=== PATIENT | female | born 1985 | race Caucasian/White ===

== ENCOUNTER 2020-12-16 15:43 | Emergency (ER) | payer OTHER, SELFPAY ==
--- NOTE | ~2020-12-16 | XR_ITS ---
EXAMINATION: XR chest 2V DATE: 12/16/2020 17:05 INDICATION: Shortness of breath TECHNIQUE: PA and lateral views of the chest are obtained. COMPARISON: None available FINDINGS: The lungs are free of acute opacities. There is no pleural effusion or pneumothorax. The ca rdiomediastinal silhouette is normal. The visualized bones and soft tissues are unremarkable. IMPRESSION: 1. No acute cardiopulmonary abnormality. Reviewed, dictated and finalized at location A. STMENT BROKER
[2020-12-16 15:45] VITALS: BP 133/90; PULSE 107; RESP 16; TEMP 36.6; O2SAT 100
--- NOTE | 2020-12-16 15:50 | ECG_ITS ---
Measurements Intervals [place] Rate: 94 P: 52 [place]: 142 QRS: 5 QRSD: 105 T: 3 QT: 353 QTc: 443 Interpretive Statements SINUS RHYTHM POSSIBLE LEFT ATRIAL ENLARGEMENT INCOMPLETE RIGHT BUNDLE BRANCH BLOCK DELAYED PRECORDIAL R/S TRANSITION BORDERLINE T WAVE ABNORMALITY- INFERIOR LEADS BASELINE WANDER- V3 BORDERLINE ECG Electronically Signed On 12-16-2020 16:01:39 BULB TESTER by Kyle Hayes D.O.
[2020-12-16 16:07] LABS: Basophils Absolute Auto 0.1 K/mm3 (0.0-0.1); Basophils Percent Auto 0.6 % (0.2-1.2); Eosinophils Absolute Auto 0.2 K/mm3 (0-0.3); Eosinophils Percent Auto 1.9 % (0-4.4); Hematocrit 39.3 % (37.0-47.0); Hemoglobin 13.3 g/dL (12.0-15.0); Immature Granulocyte Absolute 0.02 K/mm3 (0.00-0.031); Immature Granulocyte Percent A 0.3 % (0-0.5); Lymphocytes Absolute Auto 3.37 K/mm3 (0.9-3.2); Lymphocytes Percent Auto 43.3 % (18.3-44.2); Mean Corpuscular HGB Conc 33.8 g/dl (32-36); Mean Corpuscular Hemoglobin 29.7 pg (26-34); Mean Corpuscular Volume 87.7 fl (80-100); Mean Platelet Volume 9.3 fl (7.4-10.4); Monocytes Absolute Auto 0.8 K/mm3 (0.1-0.6); Monocytes Percent Auto 10.1 % (2.6-8.5); Neutrophils Absolute Auto 3.4 K/mm3 (1.3-6.7); Neutrophils Percent Auto 43.8 % (45.5-73.1); Platelet Count Result 451 k/mm3 (150-375); Red Blood Count 4.48 M/mm3 (4.2-5.4); White Blood Count 7.8 K/mm3 (4.5-10.0)
[2020-12-16 16:18] LABS: Anion Gap 7 mmol/L (8-16); Blood Urea Nitrogen 18 mg/dL (7-17); Calcium 9.9 mg/dL (8.4-10.2); Carbon Dioxide 26 mmol/L (22-30); Chloride 104 mmol/L (98-107); Estimated CRCL calculation 97 ml/min; Estimated Glomerular Filt Rate > 60; Glucose 89 mg/dL (65-105); Potassium 3.5 mmol/L (3.4-5.0); Sodium 137 mmol/L (137-145)
--- NOTE | 2020-12-16 17:59 | ED.SOB ---
HPI - SOB/Dyspnea General Chief Complaint: Shortness of Breath/Dyspnea Stated Complaint: waking up with panic attack Time Seen by Provider: 12/16/20 17:46 Source: patient Mode of arrival: ambulatory Limitations: no limitations History of Present Illness HPI Narrative: This is a 35-year-old female that presents the emergency department for intermittent chest pain x3 months. Reports after being diagnosed with coronavirus she has had trouble with chest pain since. Reports the pain is substernal and feels tight in nature. Reports it is worse when she lays down. Also reports exertional dyspnea. Reports a mild intermittent cough. Denies fever or lower extremity edema. Related Data Home Medications Medication Instructions Recorded Confirmed hydrochlorothiazide 12/16/20 12/16/20 Allergies Allergy/AdvReac Type Severity Reaction Status Date / Time No Known Allergies Allergy Verified 12/16/20 17:07 Review of Systems Review of Systems: Narrative: CONSTITUTIONAL: Denies fever CARDIOVASCULAR: Reports chest pain. Denies edema. RESPIRATORY: Reports cough and dyspnea. All systems reviewed & are unremarkable except as noted in HPI and below PMFSH Past Medical History Medical History (Updated 12/16/20 @ 19:10 by Miranda Nunez PA-C) History of kidney stones Surgical History Surgical History (Updated 12/16/20 @ 18:01 by Miranda Nunez PA-C) History of section History of lithotripsy Social History Social History Gender identity (if verbalized by the patient): Female Exam Narrative: Exam Narrative: GENERAL: Well-appearing, well-nourished, and in no acute distress. HEAD: Normocephalic, atraumatic. EYES: EOMI. CHEST: Clear to auscultation. No respiratory distress. No wheezes rales or rhonchi HEART: Regular rate and rhythm. No murmur heard. Normal peripheral pulses. EXTREMITIES: Normal range of motion. No edema. SKIN: Warm, dry, no rash. NEURO: No focal deficits. Alert and oriented x3. PSYCH: Normal mood and affect Course Vital Signs Vital signs: Vital Signs Temperature 97.8 F 12/16/20 15:45 Pulse Rate 107 H 12/16/20 15:45 Respiratory Rate 16 12/16/20 15:45 Blood Pressure 133/90 12/16/20 15:45 Pulse Oximetry 100 12/16/20 15:45 Temperature 97.8 F 12/16/20 15:45 Pulse Rate 107 H 12/16/20 15:45 Respiratory Rate 16 12/16/20 15:45 Blood Pressure 133/90 12/16/20 15:45 Pulse Oximetry 100 12/16/20 15:45 MDM - SOB/Dyspnea MDM Narrative Medical decision making narrative: Patient presents to the emergency department for intermittent chest pain and shortness of breath noted since her Covid diagnosis 3 months ago. She is afebrile and nontoxic-appearing. Mildly tachycardic upon arrival, this normalized without intervention. CBC is without leukocytosis. Metabolic panel without concerning findings. EKG is without concerning changes and baseline troponin is negative. D-dimer is also negative. Chest x-ray without acute cardiopulmonary abnormality. Patient was updated on case findings. She is stable and felt appropriate for the outpatient evaluation. She is to follow-up with her primary care doctor. She was given warnings to return to the ER Lab Data Attestation: I reviewed the patient's lab results. Result diagrams: 12/16/20 15:54 12/16/20 15:54 Labs: Lab Results 12/16/20 12/16/20 12/16/20 Range/Units 15:54 15:54 15:54 WBC 7.8 (4.5-10.0) K/mm3 RBC 4.48 (4.2-5.4) M/mm3 Hgb 13.3 (12.0-15.0) g/dL Hct 39.3 (37.0-47.0) % MCV 87.7 (80-100) fl MCH 29.7 (26-34) pg MCHC 33.8 (32-36) g/dl RDW 12.0 (11.5-14.5) % Plt Count 451 H (150-375) k/mm3 MPV 9.3 (7.4-10.4) fl Immature Gran % (Auto) 0.3 (0-0.5) % Neut % (Auto) 43.8 L (45.5-73.1) % Lymph % (Auto) 43.3 (18.3-44.2) % [place] % (Auto) 10.1 H (2.6-8.5) % Eos % (Auto) 1.9 (0-4.4) % Baso % (Auto) 0.6 (0.2-1.2)
[2020-12-16 18:04] LABS: Prothrombin Time 13.8 Seconds (11.1-14.7)
[2020-12-16 18:05] LABS: Partial Thromboplastin Time 37.1 SECONDS (22.3-36.8)
[2020-12-16 18:12] LABS: Troponin I < 0.012 ng/mL (0.000-0.034)
[2020-12-16 18:13] LABS: D Dimer < 0.22 ug/mL (<0.48)
[2020-12-16 19:18] VITALS: BP 140/96; PULSE 88; RESP 16; O2SAT 98
[2020-12-16 19:20] VITALS: BP 132/101; PULSE 86; RESP 17; O2SAT 99
[2020-12-16 19:32] VITALS: BP 140/96; PULSE 84; RESP 18; O2SAT 99
== END 2020-12-16 19:32 | disposition home or self-care (01) ==
PROVIDERS: Physician Assistant; Emergency Provider Emergency Medicine; PCP Family Medicine Sports Medicine
DX: R07.89 Other chest pain (principal); Z86.16 Personal history of COVID-19; Z87.442 Personal history of urinary calculi; R94.31 Abnormal electrocardiogram [ECG] [EKG]
CPT/HCPCS: 36415; 71046; 80048; 84484; 85025; 85380; 85610; 85730; 93005; 99284

== ENCOUNTER 2020-12-28 07:22 | Emergency (ER) | payer OTHER, SELFPAY ==
[2020-12-28] VITALS (30 sets, daily range): BP systolic 109–155; BP diastolic 68–95; PULSE 77–105; RESP 12–29; TEMP 36.7; O2SAT 92–100
--- NOTE | ~2020-12-28 | CT_ITS ---
EXAMINATION: CTA chest EXAM DATE: 12/28/2020 10:02 INDICATION: Chest pressure, back pain. TECHNIQUE: Spiral CT of the chest following intravenous injection of 100 mL Omnipaque 350. Axial, co gildardo and sagittal images were reviewed. Coronal maximum intensity pixel images of chest reviewed. The dose-length product (DLP) for this examination was 351.68 mGy-cm. The exposure was tailored acco rding to patient size (auto mA exposure control), and iterative reconstruction (ASIR) was used as add itional dose reduction technique. There is no prior study for comparison. FINDINGS: No aortic aneurysm or central pulmonary emboli. The lungs are clear. There are no pleural or pericardial effusions. Tracheobronchial tree is patent. There is no mediastinal, hilar or axi llary lymphadenopathy. There is no pneumothorax. Heart normal in size. No evidence of coronary arterial calcification. There is small sliding gastroesophageal hiatal hernia. Upper abdomen is unre markable. The bones are unremarkable. IMPRESSION: 1. No acute cardiopulmonary findings. 2. Small hiatal hernia. Reviewed, dictated and finalized at location B. UETTE OPERATOR
--- NOTE | 2020-12-28 07:29 | ECG_ITS ---
Measurements Intervals [place] Rate: 99 P: 60 [place]: 136 QRS: 9 QRSD: 106 T: -14 QT: 295 QTc: 378 Interpretive Statements SINUS RHYTHM POSSIBLE LEFT ATRIAL ENLARGEMENT INCOMPLETE RIGHT BUNDLE BRANCH BLOCK BORDERLINE T WAVE ABNORMALITY- INFERIOR LEADS BASELINE ARTIFACT- I BORDERLINE ECG Electronically Signed On 12-28-2020 8:20:57 RESOLUTION EXPERT by Kyle Hayes D.O.
--- NOTE | 2020-12-28 07:50 | ED.CHESTPAIN ---
HPI - Chest Pain General Chief Complaint: Chest Pain Stated Complaint: CP X WEEKS Time Seen by Provider: 12/28/20 07:26 Source: patient Mode of arrival: ambulatory Limitations: no limitations History of Present Illness HPI narrative: PAtient is a 35 year old female who presents for evaluation of intermittent chest pain for month. She was diagnosed with COVID in august , and she started having chest pain at that time. She states her pain resolved until 2 weeks ago. She was evaluated in ER over 1 week ago. She reports intermittent episodes of feeling that she is having a panic attack. This morning at 3 am she woke with heart racing, sweating, panicking and with chest pressure. She report she thinks she is going to . She was started on Metoprolol last for an elevated HR. She has not been referred to a cutter plastics rolls yet for evaluation. Related Data Home Medications Medication Instructions Recorded Confirmed hydrochlorothiazide 12/16/20 12/16/20 metoprolol succinate PO 12/28/20 Allergies Allergy/AdvReac Type Severity Reaction Status Date / Time No Known Allergies Allergy Verified 12/16/20 17:07 Review of Systems Review of Systems: All systems reviewed & are unremarkable except as noted in HPI and below Constitutional: Constitutional: Denies chills and Denies fever(s) Cardiovascular: Cardiovascular: Reports chest pain and Reports rapid heart rate Gastrointestinal: Gastrointestinal: Denies abdominal pain, Denies diarrhea, Reports nausea and Denies vomiting Psychiatric: Psychiatric: Reports anxiety PMFSH Past Medical History Medical History (Updated 12/28/20 @ 11:55 by Faye Latif MD) History of kidney stones Surgical History Surgical History (Updated 12/16/20 @ 18:01 by Miranda Nunez PA-C) History of section History of lithotripsy Social History Social History Gender identity (if verbalized by the patient): Female Exam Const: General: no acute distress and alert Orientation/consciousness: patient oriented x3 Eyes: EOM: EOMs intact bilaterally Chest: Chest palpation & inspection: tenderness Resp: Effort & Inspection: normal respiratory effort and no retractions Auscultation: clear to auscultation bilaterally Cardio: Rate: regular rate Rhythm: regular rhythm Heart sounds: no murmurs GI: GI Palp: Yes Soft to palpation, No Tenderness to palpation present (GI) and No Guarding due to palpation present (GI) Auscultation: normal bowel sounds Skin: General skin exam: normal color Rashes: no rashes Neuro: General: patient oriented x3, moves all extremities and CN's II-XI intact bilaterally Extrem: General: normal to inspection and no pedal edema Psych: Other: starting crying Course Reevaluation(s) Reevaluation #1: I have discussed with patient labs and imaging unremarkable. I have discussed case with cutter plastics rolls and he agrees patient can be evaluation on outpatient basis. Date: 12/28/20 Time: 11:52 Consultations Consultation #1: I Discussed case with Dr. Irwin and he reviewed patient chart. PAtient can be evaluated on outpatient basis. Date: 12/28/20 Time: 11:50 Vital Signs Vital signs: Vital Signs Temperature 98.1 F 12/28/20 07:26 Pulse Rate 103 H 12/28/20 07:26 Respiratory Rate 14 12/28/20 07:26 Blood Pressure 155/95 H 12/28/20 07:26 Pulse Oximetry 100 12/28/20 07:26 Temperature 98.1 F 12/28/20 07:26 Pulse Rate 91 12/28/20 12:11 Respiratory Rate 16 12/28/20 12:11 Blood Pressure 142/95 H 12/28/20 12:11 Pulse Oximetry 100 12/28/20 12:11 MDM - Chest Pain Lab Data Attestation: I reviewed the patient's lab results. Result diagrams: 12/28/20 07:52 12/28/20 07:52 Labs: Lab Results 12/28/20 12/28/20 12/28/20 Range/Units 07:52 07:52 07:52 WBC 9.4 (4.5-10.0) K/mm3 RBC 4.55 (4.2-5.4) M/mm3 Hgb 13.6 (12.0-15.0) g/dL Hct 40.1 (37.0-47.0) %
[2020-12-28 07:59] LABS: Basophils Percent Auto 0.4 % (0.2-1.2); Eosinophils Absolute Auto 0.2 K/mm3 (0-0.3); Eosinophils Percent Auto 1.9 % (0-4.4); Hematocrit 40.1 % (37.0-47.0); Hemoglobin 13.6 g/dL (12.0-15.0); Immature Granulocyte Absolute 0.02 K/mm3 (0.00-0.031); Immature Granulocyte Percent A 0.2 % (0-0.5); Lymphocytes Absolute Auto 3.62 K/mm3 (0.9-3.2); Lymphocytes Percent Auto 38.6 % (18.3-44.2); Mean Corpuscular HGB Conc 33.9 g/dl (32-36); Mean Corpuscular Hemoglobin 29.9 pg (26-34); Mean Corpuscular Volume 88.1 fl (80-100); Mean Platelet Volume 9.5 fl (7.4-10.4); Monocytes Absolute Auto 0.9 K/mm3 (0.1-0.6); Monocytes Percent Auto 9.3 % (2.6-8.5); Neutrophils Absolute Auto 4.6 K/mm3 (1.3-6.7); Neutrophils Percent Auto 49.6 % (45.5-73.1); Platelet Count Result 400 k/mm3 (150-375); Red Blood Count 4.55 M/mm3 (4.2-5.4); Red Cell Distribution Width 12.6 % (11.5-14.5); White Blood Count 9.4 K/mm3 (4.5-10.0)
[2020-12-28] MEDS: SODIUM CHLORIDE 0.9% IV 1,000 ML 999 ML IV CONT (07:59)
[2020-12-28] MEDS: hydrOXYzine HCL 25 MG TABLET 50 MG PO (07:59)
[2020-12-28 08:09] LABS: Prothrombin Time 13.5 Seconds (11.1-14.7)
[2020-12-28 08:11] LABS: Alanine Aminotransferase 25 U/L (4-35); Albumin Level 4.5 g/dL (3.5-5.1); Alkaline Phosphatase 73 U/L (38-126); Anion Gap 9 mmol/L (8-16); Aspartate Amino Transferase 26 U/L (14-36); Bilirubin,Total 0.5 mg/dL (0.2-1.3); Blood Urea Nitrogen 20 mg/dL (7-17); Calcium 9.6 mg/dL (8.4-10.2); Carbon Dioxide 25 mmol/L (22-30); Chloride 103 mmol/L (98-107); Estimated CRCL calculation 99 ml/min; Estimated Glomerular Filt Rate > 60; Glucose 114 mg/dL (65-105); Lipase 105 U/L (23-300); Partial Thromboplastin Time 36.1 SECONDS (22.3-36.8); Potassium 3.4 mmol/L (3.4-5.0); Sodium 137 mmol/L (137-145)
[2020-12-28 08:18] LABS: D Dimer 0.26 ug/mL (<0.48)
[2020-12-28 08:22] LABS: Troponin I < 0.012 ng/mL (0.000-0.034)
--- NOTE | 2020-12-28 10:55 | PC.NURSE ---
refinery operator helper at bedside obtaining labs. Pt. in no acute distress. Breathing and skin signs wnl.
[2020-12-28 11:23] LABS: Troponin I < 0.012 ng/mL (0.000-0.034)
[2020-12-28] MEDS: BELLADONNA ALK/PHENOB ELIX 10 ML, MAG HYDROX/ALUMINUM HYD/SIMETH 30 ML, LIDOCAINE HCL 2... PO (11:32)
== END 2020-12-28 12:34 | disposition home or self-care (01) ==
PROVIDERS: Emergency Provider General Practice; PCP Family Medicine Sports Medicine
DX: R07.89 Other chest pain (principal); R00.2 Palpitations; Z87.442 Personal history of urinary calculi
CPT/HCPCS: 36415; 71275; 80048; 80076; 81025; 83690; 84484; 85025; 85380; 85610; 85730; 93005; 96360; 99284; A9270; J7030; Q9967

== ENCOUNTER 2021-01-09 14:26 | Emergency (ER) | payer OTHER, SELFPAY ==
--- NOTE | ~2021-01-09 | XR_ITS ---
EXAMINATION: XR chest 2V EXAM DATE: 01/09/2021 14:51 INDICATION: Mid chest pain, racing heart. TECHNIQUE: Frontal and lateral projections of the chest obtained and reviewed. Comparison is made to prior examination from 12/16/2020. FINDINGS: The lungs are clear. There are no pleural effusions. The cardiomediastinal silhouette is within normal limits. There is no pneumothorax suspected. The bones and soft tissues are unremarkab le. IMPRESSION: Normal chest x-ray exam. Reviewed, dictated and finalized at location G. TE CLERK IMPRESSION: Normal chest x-ray exam.
--- NOTE | 2021-01-09 14:30 | ECG_ITS ---
Measurements Intervals [place] Rate: 107 P: 60 [place]: 134 QRS: -3 QRSD: 100 T: -7 QT: 348 QTc: 466 Interpretive Statements SINUS TACHYCARDIA POSSIBLE LEFT ATRIAL ENLARGEMENT INCOMPLETE RIGHT BUNDLE BRANCH BLOCK NONSPECIFIC T-WAVE ABNORMALITY- ANT/INF LEADS BASELINE ARTIFACT- I, II, AVR, AVF, V4-V6 ABNORMAL ECG Electronically Signed On 01-09-2021 14:39:24 PROPERTY SUPERVISOR by Kyle Hayes D.O.
[2021-01-09 14:32] VITALS: BP 155/105; PULSE 105; RESP 18; TEMP 36.8; O2SAT 100
[2021-01-09 15:07] LABS: Basophils Percent Auto 0.5 % (0.2-1.2); Eosinophils Absolute Auto 0.1 K/mm3 (0-0.3); Eosinophils Percent Auto 1.6 % (0-4.4); Hematocrit 41.5 % (37.0-47.0); Hemoglobin 14.1 g/dL (12.0-15.0); Immature Granulocyte Absolute 0.02 K/mm3 (0.00-0.031); Immature Granulocyte Percent A 0.2 % (0-0.5); Lymphocytes Absolute Auto 3.47 K/mm3 (0.9-3.2); Lymphocytes Percent Auto 39.9 % (18.3-44.2); Mean Corpuscular Hemoglobin 29.7 pg (26-34); Mean Corpuscular Volume 87.6 fl (80-100); Mean Platelet Volume 9.3 fl (7.4-10.4); Monocytes Absolute Auto 0.9 K/mm3 (0.1-0.6); Monocytes Percent Auto 10.2 % (2.6-8.5); Neutrophils Absolute Auto 4.1 K/mm3 (1.3-6.7); Neutrophils Percent Auto 47.6 % (45.5-73.1); Platelet Count Result 461 k/mm3 (150-375); Red Blood Count 4.74 M/mm3 (4.2-5.4); Red Cell Distribution Width 12.4 % (11.5-14.5); White Blood Count 8.7 K/mm3 (4.5-10.0)
[2021-01-09 15:09] VITALS: PULSE 91
[2021-01-09 15:13] LABS: INR 0.9; Prothrombin Time 13.1 Seconds (11.1-14.7)
[2021-01-09 15:14] LABS: Partial Thromboplastin Time 36.3 SECONDS (22.3-36.8)
[2021-01-09 15:15] LABS: Magnesium 1.9 mg/dL (1.6-2.3)
--- NOTE | 2021-01-09 15:18 | ED.CHESTPAIN ---
HPI - Chest Pain General Chief Complaint: Chest Pain Stated Complaint: chest pain Time Seen by Provider: 01/09/21 14:33 History of Present Illness HPI narrative: Patient is a 35-year-old female who presents to the ER with chest pain. Has been having issues with this over the last couple months. Reports she has been to the ER multiple times. She has had a CT to rule out PE and has had multiple blood test. She is scheduled to have a Holter monitor put on tomorrow and then is also scheduled for a stress test. Patient is not drinking caffeine. She does not smoke cigarettes. She reports she has been feeling her heart potentially skip a beat and that is what provoked everything this morning. She then is unsure if she has panic attacks but will then monitor her heart rate and finds it is variable in its speed. Related Data Home Medications Medication Instructions Recorded Confirmed hydrochlorothiazide 12/16/20 12/16/20 metoprolol succinate PO 12/28/20 Allergies Allergy/AdvReac Type Severity Reaction Status Date / Time No Known Allergies Allergy Verified 12/16/20 17:07 Review of Systems Review of Systems: All systems reviewed & are unremarkable except as noted in HPI and below Constitutional: Constitutional: Denies chills, Denies fever(s) and Denies weakness Cardiovascular: Cardiovascular: Reports chest pain, Reports rapid heart rate and Denies radiating jaw, neck or arm pain Respiratory: Respiratory: Denies cough, Reports dyspnea and Denies wheezing Gastrointestinal: Gastrointestinal: Denies abdominal pain, Denies nausea and Denies vomiting Psychiatric: Psychiatric: Reports anxiety and Denies depression PMF Past Medical History Medical History (Updated 01/09/21 @ 16:35 by Clayton Burns MD) History of kidney stones Surgical History Surgical History (Updated 12/16/20 @ 18:01 by Miranda Nunez PA-C) History of section History of lithotripsy Social History Social History Gender identity (if verbalized by the patient): Female Exam Narrative: Exam Narrative: GENERAL: Well-appearing, well-nourished, and in no acute distress. HEAD: Normocephalic, atraumatic. CHEST: Clear to auscultation. No respiratory distress. HEART: Regular rate and rhythm. Normal peripheral pulses. ABDOMEN: Soft, nontender, nondistended. EXTREMITIES: Normal range of motion. No edema. SKIN: Warm, dry, no rash. NEURO: Alert and oriented x3. Course Course Emergency Course: Suspect patient is having symptomatic PVCs. Recommend patient keep her follow-up with cardiology and obtain her outpatient Holter monitor. Discharge home. Vital Signs Vital signs: Vital Signs Temperature 98.2 F 01/09/21 14:32 Pulse Rate 105 H 01/09/21 14:32 Respiratory Rate 18 01/09/21 14:32 Blood Pressure 155/105 H 01/09/21 14:32 Pulse Oximetry 100 01/09/21 14:32 Temperature 98.2 F 01/09/21 14:32 Pulse Rate 91 01/09/21 15:09 Respiratory Rate 18 01/09/21 14:32 Blood Pressure 155/105 H 01/09/21 14:32 Pulse Oximetry 100 01/09/21 14:32 MDM - Chest Pain Lab Data Result diagrams: 01/09/21 14:56 01/09/21 14:56 Labs: Lab Results 01/09/21 01/09/21 01/09/21 Range/Units 14:56 14:56 14:56 WBC 8.7 (4.5-10.0) K/mm3 RBC 4.74 (4.2-5.4) M/mm3 Hgb 14.1 (12.0-15.0) g/dL Hct 41.5 (37.0-47.0) % MCV 87.6 (80-100) fl MCH 29.7 (26-34) pg MCHC 34.0 (32-36) g/dl RDW 12.4 (11.5-14.5) % Plt Count 461 H (150-375) k/mm3 MPV 9.3 (7.4-10.4) fl Immature Gran % (Auto) 0.2 (0-0.5) % Neut % (Auto) 47.6 (45.5-73.1) % Lymph % (Auto) 39.9 (18.3-44.2) % [place] % (Auto) 10.2 H (2.6-8.5) % Eos % (Auto) 1.6 (0-4.4) % Baso % (Auto) 0.5 (0.2-1.2) % Lymph # (Auto) 3.47 H (0.9-3.2) K/mm3 [place] # (Auto) 0.9 H (0.1-0.6) K/mm3 Eos # (Auto) 0.1 (0-0.3) K/mm3 Baso # (Auto) 0.0 (0.0-0.1) K/mm3 Abs Immat Gra
[2021-01-09 15:49] LABS: Anion Gap 10 mmol/L (8-16); Blood Urea Nitrogen 14 mg/dL (7-17); Calcium 10.2 mg/dL (8.4-10.2); Carbon Dioxide 29 mmol/L (22-30); Chloride 100 mmol/L (98-107); Estimated CRCL calculation 86 ml/min; Estimated Glomerular Filt Rate > 60; Glucose 100 mg/dL (65-105); Potassium 3.2 mmol/L (3.4-5.0); Sodium 139 mmol/L (137-145)
[2021-01-09 16:01] LABS: Troponin I < 0.012 ng/mL (0.000-0.034)
[2021-01-09 16:55] VITALS: BP 134/85; PULSE 85; RESP 18; O2SAT 98
== END 2021-01-09 17:01 | disposition home or self-care (01) ==
PROVIDERS: Emergency Medicine; Emergency Provider Emergency Medicine; PCP Family Medicine Sports Medicine
DX: R00.2 Palpitations (principal); Z87.442 Personal history of urinary calculi; R00.0 Tachycardia, unspecified; R94.31 Abnormal electrocardiogram [ECG] [EKG]; I45.10 Unspecified right bundle-branch block
CPT/HCPCS: 36415; 71046; 80048; 83735; 84484; 85025; 85610; 85730; 93005; 99284

== ENCOUNTER 2021-01-30 09:41 | Outpatient (CLI) | payer OTHER, SELFPAY ==
--- NOTE | ~2021-01-30 | NM_ITS ---
EXAMINATION: NM hepatobiliary wo pharm DATE: 01/30/2021 12:32 INDICATION: Upper abdominal pain. COMPARISON: None. TECHNIQUE: 4.8 mCi Tc-99m mebrofenin (Choletec) was administered intravenously. Scintigraphic images of the abdomen were obtained for one hour. Then, the patient drank 8 oz Ensure, and imaging was cont inued for 60 minutes. FINDINGS: There is normal clearance of radiotracer from the blood pool. There is homogeneous tracer u ptake by the liver. Activity progresses to the bowel and gallbladder. Gallbladder ejection fraction (GBEF) was 26%. Note that with this technique, normal GBEF >= 33%. IMPRESSION: 1. Low gallbladder ejection fraction, consistent with gallbladder dysfunction and/or chronic cholecy stitis. Reviewed, dictated and finalized at location A. OROLOGY PROFESSOR IMPRESSION: 1. Low gallbladder ejection fraction, consistent with gallbladder dysfunction and/or chronic cholecystitis.
== END 2021-01-30 09:42 | disposition home or self-care (01) ==
LOC: ANHIMG 09:45
PROVIDERS: PCP Family Medicine Sports Medicine; Visit Provider Nurse Practitioner
DX: R07.89 Other chest pain (principal); R11.0 Nausea; R10.84 Generalized abdominal pain; R53.83 Other fatigue
CPT/HCPCS: 78226; A9537

== ENCOUNTER → 2021-06-01 15:10 | Outpatient (CLI) | payer OTHER, SELFPAY ==
--- NOTE | ~2021-06-01 | CT_ITS ---
EXAMINATION: CT cervical spine wo con DATE: 06/01/2021 15:35 INDICATION: Neck pain. Cervical stenosis. TECHNIQUE: Computed tomography (CT) of the cervical spine was performed without intravenous contrast. Automated exposure control and iterative reconstruction technique were employed. The dose-length pro duct was 237.53 mGy-cm. COMPARISON: None FINDINGS: There is mild kyphosis of lower cervical spine. There is 3 degrees dextrocurvature of cervi jamey spine. Vertebral body heights are normal. There is moderately decreased disc height at C5-C6 and C6-C7. The following disc levels are specifically discussed: C2-C3 through C4-C5: There is no uncovertebral joint osteoarthritis. There is no facet joint osteoart hritis. There is no neural foraminal stenosis. There is no central canal stenosis. C5-C6: There is mild bilateral uncovertebral joint osteoarthritis. There is no facet joint osteoarthr itis. There is mild right neural foraminal stenosis. There is moderate central canal stenosis. C6-C7: There is mild bilateral uncovertebral joint osteoarthritis. There is no facet joint osteoarthr itis. There is no neural foraminal stenosis. There is moderate central canal stenosis. C7-T1: There is no uncovertebral joint osteoarthritis. There is mild bilateral facet joint osteoarthr itis. There is no neural foraminal stenosis. There is no central canal stenosis. IMPRESSION: 1. Moderate cervical spondylosis. Reviewed, dictated and finalized at location A.
== END ==
DX: M48.02 Spinal stenosis, cervical region (principal); M47.892 Other spondylosis, cervical region
CPT/HCPCS: 72125

== ENCOUNTER → 2021-06-01 15:17 | Outpatient (CLI) | payer OTHER, SELFPAY ==
--- NOTE | ~2021-06-01 | CT_ITS ---
EXAMINATION: CT diagnostic chest wo con DATE: 06/01/2021 15:35 INDICATION: Thoracic cysts. TECHNIQUE: Computed tomography (CT) of the chest was performed without intravenous contrast. The dose -length product was 190.92 mGy-cm. Automated exposure control and iterative reconstruction technique were employed. COMPARISON: CT dated 12/28/2020 FINDINGS: No thoracic lymphadenopathy. No significant pleural or pericardial effusion. No significant vascular abnormality. Upper abdomen is unremarkable. There are cholecystectomy clips. No soft tissue abnormality is seen. There is dependent atelectasis. No suspicious pulmonary nodules or masses. Smal l hiatal hernia. IMPRESSION: 1. No acute cardiopulmonary disease. Reviewed, dictated and finalized at location A.
== END ==
DX: Q34.9 Congenital malformation of respiratory system, unspecified (principal)
CPT/HCPCS: 71250

== ENCOUNTER → 2021-07-07 13:14 | Outpatient (CLI) | payer OTHER, SELFPAY ==
--- NOTE | ~2021-07-07 | XR_ITS ---
XR ankle LT 2V DATE: 07/07/2021 14:11 INDICATION: Left ankle pain TECHNIQUE: AP and lateral views COMPARISON: None FINDINGS: No fracture or dislocation of the ankle or disruption of the ankle mortise. No periosteal r eaction or bone destruction. There is mild posterior calcaneal enthesopathy. IMPRESSION: Mild posterior calcaneal enthesopathy Reviewed, dictated and finalized at location A.
--- NOTE | ~2021-07-07 | XR_ITS ---
XR foot RT 2V DATE: 07/07/2021 14:11 INDICATION: Right foot pain TECHNIQUE: AP and lateral views COMPARISON: None FINDINGS: Mild posterior calcaneal enthesopathy. No fracture or dislocation, periosteal reaction or b one destruction. IMPRESSION: Mild posterior calcaneal enthesopathy Reviewed, dictated and finalized at location A.
--- NOTE | ~2021-07-07 | XR_ITS ---
XR ankle RT 2V DATE: 07/07/2021 14:11 INDICATION: Right ankle pain TECHNIQUE: AP and lateral views COMPARISON: None FINDINGS: No fracture or dislocation of the ankle or disruption of the ankle mortise. No periosteal r eaction or bone destruction. Mild posterior calcaneal enthesopathy. IMPRESSION: Mild posterior calcaneal enthesopathy Reviewed, dictated and finalized at location A.
--- NOTE | ~2021-07-07 | XR_ITS ---
XR foot LT 2V DATE: 07/07/2021 14:11 INDICATION: Left foot pain TECHNIQUE: AP and lateral views COMPARISON: None FINDINGS: Mild posterior calcaneal enthesopathy. No fracture or dislocation, periosteal reaction or b one destruction. IMPRESSION: Mild posterior calcaneal enthesopathy Reviewed, dictated and finalized at location A.
== END ==
PROVIDERS: Visit Provider Internal Medicine Rheumatology
DX: R53.81 Other malaise (principal); M25.50 Pain in unspecified joint; M79.10 Myalgia, unspecified site; M77.31 Calcaneal spur, right foot; M77.32 Calcaneal spur, left foot
CPT/HCPCS: 73600; 73620

== ENCOUNTER 2021-12-23 23:03 | Emergency (ER) | payer OTHER, SELFPAY ==
--- NOTE | ~2021-12-23 | CT_ITS ---
EXAMINATION: CT abdomen pelvis wo con DATE: 12/24/2021 04:32 INDICATION: Left flank pain. Nausea. TECHNIQUE: Computed tomography (CT) of the abdomen and pelvis was performed without intravenous contr ast. Automated exposure control and iterative reconstruction technique were employed. The dose-length product was 390.20 mGy-cm. COMPARISON: Chest CT 06/01/2021 FINDINGS: The visualized portions of the lung bases demonstrate minimal atelectasis. No pleural effus ion. The heart size is normal. No pericardial effusion. There is a small sliding hiatal hernia. The l iver is normal. There are changes of cholecystectomy. The spleen, pancreas, adrenal glands, and left kidney are normal. There are 2 stones in right kidney with the larger measuring 3 mm. There is divert iculosis of the colon without evidence of diverticulitis. There are no dilated loops of bowel. The ap pendix is normal. There is a 3.1 cm cyst in right ovary, likely a follicular cyst. There are no patho logically enlarged lymph nodes. There is no free intraperitoneal fluid. There is mild osteoarthritis of the hips. IMPRESSION: 1. Small nonobstructing right kidney stones. 2. Small sliding hiatal hernia. 3. 3.1 cm cyst in right ovary, likely a follicular cyst. Reviewed, dictated and finalized at location A. PENDENT PRODUCER
[2021-12-23 23:11] VITALS: BP 135/96; PULSE 90; RESP 14; TEMP 36.8; O2SAT 100
[2021-12-24 03:17] VITALS: BP 144/98; PULSE 89; RESP 18; O2SAT 100
[2021-12-24 04:11] VITALS: BP 121/82; PULSE 77; RESP 18; O2SAT 100
[2021-12-24] MEDS: SODIUM CHLORIDE 0.9% IV 1,000 ML 999 ML IV CONT (04:12)
--- NOTE | 2021-12-24 04:12 | ED.GENADULT ---
HPI - General Adult General Chief complaint: Urogenital-Female Stated complaint: ABD pain, low back pain Time Seen by Provider: 12/24/21 03:43 History of Present Illness HPI narrative: Patient is a 36-year-old female that presents to emergency department with chief complaint of abdominal pain and flank pain. The patient states she started having pain in the left flank that radiates down into her left lower extremity the patient states that she has some burning sensation patient states the pain is then started to radiate to her left lower quadrant and reports that she also started having some vaginal bleeding today. The patient reports that this was to start sooner than her normal period should be patient denies being . Patient reports she has history of kidney stones in the past Related Data Home Medications Medication Instructions Recorded Confirmed duloxetine 30 mg capsule,delayed 30 mg PO DAILY 07/03/21 07/03/21 release gabapentin 300 mg capsule 300 mg PO DAILY 07/03/21 07/03/21 Allergies Allergy/AdvReac Type Severity Reaction Status Date / Time No Known Allergies Allergy Verified 12/24/21 03:18 Review of Systems Review of Systems: A 10 system review of systems was completed on the patient and is negative except for what is stated in the HPI. Nursing and ancillary documentation was reviewed. [facility] Past Medical History Medical History History of kidney stones Surgical History Surgical History History of section History of lithotripsy Social History Social History Smoking status: Current every day smoker Alcohol intake: never Substance use: never Substance use type: does not use Gender identity (if verbalized by the patient): Female Exam Narrative: GENERAL: Well-appearing, well-nourished, and in no acute distress. HEAD: Normocephalic, atraumatic. EYES: PERRLA and EOMI. ENT: Nares clear, no rhinorrhea or epistaxis. Mucous membranes moist. NECK: Supple. CHEST: Clear to auscultation. No respiratory distress. HEART: Regular rate and rhythm. No murmur heard. Normal peripheral pulses. ABDOMEN: Soft, nontender, nondistended, normal active bowel sounds. EXTREMITIES: Normal range of motion. No edema. SKIN: Warm, dry, no rash. NEURO: No focal deficits. Alert and oriented x3. PSYCH: Normal mood and affect. Course Vital Signs Vital signs: Vital Signs Temperature 36.8 C 12/23/21 23:11 Pulse Rate 90 12/23/21 23:11 Respiratory Rate 14 12/23/21 23:11 Blood Pressure 135/96 H 12/23/21 23:11 Pulse Oximetry 100 12/23/21 23:11 Temperature 36.8 C 12/23/21 23:11 Pulse Rate 77 12/24/21 04:11 Respiratory Rate 18 12/24/21 04:11 Blood Pressure 121/82 12/24/21 04:11 Pulse Oximetry 100 12/24/21 04:11 Medical Decision Making Vital Signs Vital Signs: Vital Signs Temperature 36.8 C 12/23/21 23:11 Pulse Rate 90 12/23/21 23:11 Respiratory Rate 14 12/23/21 23:11 Blood Pressure 135/96 H 12/23/21 23:11 Pulse Oximetry 100 12/23/21 23:11 Temperature 36.8 C 12/23/21 23:11 Pulse Rate 77 12/24/21 04:11 Respiratory Rate 18 12/24/21 04:11 Blood Pressure 121/82 12/24/21 04:11 Pulse Oximetry 100 12/24/21 04:11 Lab Data Result diagrams: 12/24/21 04:10 12/24/21 04:10 Labs: Lab Results 12/24/21 12/24/21 12/24/21 Range/Units 04:10 04:10 04:10 WBC 7.2 (4.5-10.0) K/mm3 RBC 3.87 L (4.2-5.4) M/mm3 Hgb 12.0 (12.0-15.0) g/dL Hct 35.2 L (37.0-47.0) % MCV 91.0 (80-100) fl MCH 31.0 (26-34) pg MCHC 34.1 (32-36) g/dl RDW 12.9 (11.5-14.5) % Plt Count 325 (150-375) k/mm3 MPV 9.3 (7.4-10.4) fl Immature Gran % (Auto) 0.1 (0-0.5) % Neut % (Auto) 39.2 L (45.
[2021-12-24 04:30] LABS: Basophils Percent Auto 0.4 % (0.2-1.2); Eosinophils Absolute Auto 0.2 K/mm3 (0-0.3); Eosinophils Percent Auto 2.6 % (0-4.4); Hematocrit 35.2 % (37.0-47.0); Immature Granulocyte Absolute 0.01 K/mm3 (0.00-0.031); Immature Granulocyte Percent A 0.1 % (0-0.5); Lymphocytes Absolute Auto 3.52 K/mm3 (0.9-3.2); Lymphocytes Percent Auto 48.6 % (18.3-44.2); Mean Corpuscular HGB Conc 34.1 g/dl (32-36); Mean Platelet Volume 9.3 fl (7.4-10.4); Monocytes Absolute Auto 0.7 K/mm3 (0.1-0.6); Monocytes Percent Auto 9.1 % (2.6-8.5); Neutrophils Absolute Auto 2.8 K/mm3 (1.3-6.7); Neutrophils Percent Auto 39.2 % (45.5-73.1); Platelet Count Result 325 k/mm3 (150-375); Red Blood Count 3.87 M/mm3 (4.2-5.4); Red Cell Distribution Width 12.9 % (11.5-14.5); White Blood Count 7.2 K/mm3 (4.5-10.0)
[2021-12-24 04:35] LABS: Add Urine Microscopic? YES; Appearance Urine Clear (Clear); Bacteria Urine Trace /hpf; Bilirubin Urine Negative (Negative); Blood Urine 3+ (Negative); Color Urine Yellow (Yellow); Glucose Urine UA Negative (Negative); Ketones Urine Negative (Negative); Leukocyte Esterase Ur Negative LEU/UL (Negative); Mucus Urine Rare /lpf; Nitrate Urine Negative (Negative); Protein Urine 1+ mg/dL (Negative); RBC Urine >75 /hpf (0-2); Specific Grav Ur 1.013 (1.001-1.035); Squamous Epithelial Cell Urine Few /hpf (Few); Urobilinogen Urine Negative mg/dL (<2.0)
[2021-12-24 04:47] LABS: Potassium 3.7 mmol/L (3.4-5.0)
[2021-12-24 05:31] LABS: Alanine Aminotransferase 22 U/L (4-35); Albumin Level 4.4 g/dL (3.5-5.1); Alkaline Phosphatase 69 U/L (38-126); Anion Gap 4 mmol/L (8-16); Aspartate Amino Transferase 28 U/L (14-36); Bilirubin,Total 0.5 mg/dL (0.2-1.3); Blood Urea Nitrogen 14 mg/dL (7-17); Calcium 9.3 mg/dL (8.4-10.2); Carbon Dioxide 25 mmol/L (22-30); Chloride 107 mmol/L (98-107); Estimated CRCL calculation 98 ml/min; Estimated Glomerular Filt Rate > 60; Glucose 97 mg/dL (65-110); Lipase 74 U/L (23-300); Magnesium 2.1 mg/dL (1.6-2.3); Sodium 136 mmol/L (137-145)
[2021-12-24 06:05] VITALS: BP 121/82; PULSE 83; RESP 16; O2SAT 99
== END 2021-12-24 06:07 | disposition home or self-care (01) ==
PROVIDERS: Emergency Provider Emergency Medicine
DX: R10.84 Generalized abdominal pain (principal); M54.32 Sciatica, left side; Z87.442 Personal history of urinary calculi; F17.200 Nicotine dependence, unspecified, uncomplicated
CPT/HCPCS: 36415; 74176; 80053; 81001; 81025; 83690; 83735; 85025; 96360; 99284; J7030

== ENCOUNTER 2023-07-13 15:12 | Emergency (ER) | payer OTHER, SELFPAY ==
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
[2023-07-13 15:13] VITALS: BP 151/100; PULSE 72; RESP 18; TEMP 36.7; O2SAT 100
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
--- NOTE | 2023-07-13 17:02 | PC.NURSE ---
pt taken to CT at this time
[2023-07-13] MEDS: PROCHLORPERAZINE EDISYLATE 10 MG/2 ML VIAL IV PUSH (17:34)
[2023-07-13] MEDS: SODIUM CHLORIDE 0.9% IV 1,000 ML 999 ML IV CONT (17:34)
[2023-07-13] MEDS: ONDANSETRON INJ 4 MG/2 ML VIAL IV PUSH (17:34)
[2023-07-13] MEDS: diphenhydrAMINE HCl INJ 50 MG/ML VIAL 25 MG IV PUSH (17:34)
[2023-07-13 18:18] VITALS: BP 138/72; PULSE 69; RESP 15; O2SAT 100
== END 2023-07-13 18:20 | disposition home or self-care (01) ==
PROVIDERS: Emergency Provider Physician Assistant; PCP Family Medicine Sports Medicine
DX: S00.12XA Contusion of left eyelid and periocular area, initial encounter (principal); R51.9 Headache, unspecified; Z87.442 Personal history of urinary calculi; F17.200 Nicotine dependence, unspecified, uncomplicated; Y09 Assault by unspecified means
CPT/HCPCS: 70486; 96361; 96374; 96375; 99284; J0780; J1200; J2405; J7030

== ENCOUNTER 2023-09-01 15:04 | Emergency (ER) | payer OTHER, SELFPAY ==
--- NOTE | ~2023-09-01 | XR_ITS ---
EXAM: XR knee RT min 4V DATE: 09/01/2023 15:35 HISTORY: knee injury WHILE RUNNING YESTERDAY . COMPARISON: None available. FINDINGS: Normal mineralization. No fracture or dislocation. No lytic or blastic lesion. Mild tricom partmental osteoarthritic arthritis. No erosion or periosteal change. Soft tissues within normal limi ts. IMPRESSION: No acute osseous finding in the right knee. Reviewed, dictated and finalized at location K.
[2023-09-01 15:12] VITALS: BP 118/72; PULSE 105; RESP 18; TEMP 36.9; O2SAT 100
[2023-09-01] MEDS: KETOROLAC 30 MG/ML VIAL (*BKC) IM (16:08)
[2023-09-01] MEDS: HYDROcodone/acetaminophen (*CRX) 5-325 MG TABLET 1 TAB PO (16:09)
--- NOTE | 2023-09-01 16:46 | ED.GENADULT ---
HPI - General Adult General Chief complaint: Extremity Injury, Lower Stated complaint: right knee pain Time Seen by Provider: 09/01/23 15:18 History of Present Illness HPI narrative: Karen Sharma is a 38 y/o female who presents with reports of running yesterday at around 1800 when she felt a pop in her right knee, it was painful. She states that she stopped running and went home and over the time her pain has become much worse. Shes states it is more on the sides of her knee and on top of her knee. She took tylenol earlier today but it has not helped much, putting any weight on her knee makes her pain much worse. Related Data Home Medications Medication Instructions Recorded Confirmed duloxetine 30 mg capsule,delayed 30 mg PO DAILY 07/03/21 07/03/21 release (Cymbalta) gabapentin 300 mg capsule 300 mg PO DAILY 07/03/21 07/03/21 Allergies Allergy/AdvReac Type Severity Reaction Status Date / Time No Known Allergies Allergy Verified 09/01/23 15:12 Review of Systems Review of Systems: CONSTITUTIONAL: Denies fever, chills, or sweats. EYES: Denies visual changes, redness, or discharge. ENT: Denies rhinorrhea, congestion, sore throat, or otalgia. CARDIOVASCULAR: Denies chest pain, palpitations, or edema. RESPIRATORY: Denies cough or dyspnea. GASTROINTESTINAL: Denies abdominal pain, nausea, vomiting, or diarrhea. GENITOURINARY: Denies dysuria or hematuria. SKIN: Denies rash or itching. MUSCULOSKELETAL: Denies back pain, complains of severe right knee pain. PSYCHIATRIC: Denies anxiety or depression. [facility] Past Medical History Medical History History of kidney stones Surgical History Surgical History History of section History of lithotripsy Social History Social History Smoking status: Current every day smoker Alcohol intake: never Substance use: never Substance use type: does not use Gender identity (if verbalized by the patient): Female Exam Narrative: GENERAL: Well-appearing, well-nourished, and in no acute distress. HEAD: Normocephalic, atraumatic. EYES: PERRLA and EOMI. ENT: Nares clear, no rhinorrhea or epistaxis. Mucous membranes moist. Oropharynx without tonsillar hypertrophy exudate or other lesions. NECK: Supple. No adenopathy or masses. No carotid bruits or JVD CHEST: Clear to auscultation. No respiratory distress. No wheezes rales or rhonchi HEART: Regular rate and rhythm. No murmur heard. Normal peripheral pulses. ABDOMEN: Soft, nontender, nondistended, normal active bowel sounds. EXTREMITIES: pain reproduced with movement and palpation to the right knee. NO obvious deformity or instability noted on exam, no erythema/ecchymosis noted. SKIN: Warm, dry, no rash. NEURO: No focal deficits. Alert and oriented x3. PSYCH: Normal mood and affect. Course Vital Signs Vital signs: Vital Signs Temperature 36.9 C 09/01/23 15:12 Pulse Rate 105 H 09/01/23 15:12 Respiratory Rate 18 09/01/23 15:12 Blood Pressure 118/72 09/01/23 15:12 Pulse Oximetry 100 09/01/23 15:12 Temperature 36.9 C 09/01/23 15:12 Pulse Rate 105 H 09/01/23 15:12 Respiratory Rate 18 09/01/23 15:12 Blood Pressure 118/72 09/01/23 15:12 Pulse Oximetry 100 09/01/23 15:12 Medical Decision Making MDM Narrative Medical decision making narrative: On exam pt states she can not straighten or bend her right knee I was able to do full ROM with her knee and she tolerated well Distal pulses present NO obvious deformity/ erythema /ecchymosis possible slight knee swelling but difficult to tell from her body habitus No obvious joint laxity noted on exam Patient does state that she has quite a lot of pain with palpation to the medial and the lateral aspect of the knee and some to top of her patella area. Plan to tr
== END 2023-09-01 17:15 | disposition home or self-care (01) ==
PROVIDERS: Emergency Provider Nurse Practitioner Family
DX: S83.91XA Sprain of unspecified site of right knee, initial encounter (principal); F17.200 Nicotine dependence, unspecified, uncomplicated; Z87.442 Personal history of urinary calculi; X50.9XXA Other and unspecified overexertion or strenuous movements or postures, initial encounter
CPT/HCPCS: 73564; 96372; 99283; A9270; J1885

== ENCOUNTER 2024-03-21 16:10 | Emergency (ER) | payer OTHER, SELFPAY ==
[2024-03-21 16:21] VITALS: BP 135/95; PULSE 77; RESP 16; TEMP 36.9; O2SAT 97
--- NOTE | 2024-03-21 17:22 | ED.GENADULT ---
HPI - General Adult General Chief complaint: Urogenital-Female Stated complaint: Uti Symptoms Time Seen by Provider: 03/21/24 17:23 Source: patient Mode of arrival: ambulatory Limitations: no limitations History of Present Illness HPI narrative: 38-year-old female patient presents to the [facility] with complaints of urinary symptoms. Patient states she has had some pain to the abdominal area in the back at times. Patient states she has had UTIs multiple times and does have history of kidney stones but states these are not her typical kidney stone symptoms. Denies fevers, body aches or chills. Related Data Home Medications Medication Instructions Recorded Confirmed duloxetine 30 mg capsule,delayed 30 mg PO DAILY 07/03/21 03/21/24 release (Cymbalta) gabapentin 300 mg capsule 300 mg PO DAILY 07/03/21 03/21/24 metoprolol tartrate 50 mg tablet 50 mg PO DAILY 03/21/24 03/21/24 Allergies Allergy/AdvReac Type Severity Reaction Status Date / Time No Known Allergies Allergy Verified 03/21/24 17:12 Review of Systems Review of Systems: CONSTITUTIONAL: Denies fever, chills, or sweats. EYES: Denies visual changes, redness, or discharge. ENT: Denies rhinorrhea, congestion, sore throat, or otalgia. CARDIOVASCULAR: Denies chest pain, palpitations, or edema. RESPIRATORY: Denies cough or dyspnea. GASTROINTESTINAL: positive lower abdominal pain, nausea, vomiting, or diarrhea. GENITOURINARY: Positive dysuria , denies gross hematuria. SKIN: Denies rash or itching. MUSCULOSKELETAL: Denies back pain, joint pain, or myalgia. NEUROLOGIC: Denies headache, numbness, or weakness. PSYCHIATRIC: Denies anxiety or depression. [facility] Past Medical History Medical History History of kidney stones Surgical History Surgical History History of section History of lithotripsy Social History Social History Smoking status: Current every day smoker Alcohol intake: never Substance use: never Substance use type: does not use Gender identity (if verbalized by the patient): Female Comments At the time of my signature I agree with nursing past medical history, surgical, social, and family history. There is no relevant family history pertinent to the presenting complaint. Exam Narrative: GENERAL: Well-appearing, well-nourished, and in no acute distress. HEAD: Normocephalic, atraumatic. EYES: PERRLA and EOMI. ENT: Nares clear, no rhinorrhea or epistaxis. Mucous membranes moist. NECK: Supple. No lymphadenopathy CHEST: Clear to auscultation. No respiratory distress. HEART: Regular rate and rhythm. No murmur heard. Normal peripheral pulses. ABDOMEN: Soft, flat, nondistended. No guarding, rebound tenderness, or rigid. No pulsatilla masses. Bowel sounds present in all four quadrants. No organomegaly. Negative Soares?s sign. No periumbicial tenderness. positive Supra public tenderness or distension. Good femoral pulses bilaterally. No hernia noted. No scars or surface trauma. no CVA tenderness on percussion EXTREMITIES: Normal range of motion. No edema. SKIN: Warm, dry, no rash. NEURO: No focal deficits. Alert and oriented x3. Course Course Level of Care: Express Care Visit Vital Signs Vital signs: Vital Signs Temperature 36.9 C 03/21/24 16:21 Pulse Rate 77 03/21/24 16:21 Respiratory Rate 16 03/21/24 16:21 Blood Pressure 135/95 H 03/21/24 16:21 Pulse Oximetry 97 03/21/24 16:21 Temperature 36.9 C 03/21/24 16:21 Pulse Rate 77 03/21/24 16:21 Respiratory Rate 16 03/21/24 16:21 Blood Pressure 135/95 H 03/21/24 16:21 Pulse Oximetry 97 03/21/24 16:21 Vital signs reviewed. Medical Decision Making MDM Narrative Medical decision making narrative: plan of care for patient is to discharge home with oral antibio
== END 2024-03-21 17:38 | disposition home or self-care (01) ==
PROVIDERS: Emergency Provider Nurse Practitioner Family; PCP Family Medicine
DX: N30.00 Acute cystitis without hematuria (principal); F17.200 Nicotine dependence, unspecified, uncomplicated
CPT/HCPCS: 81003; 81025; 87086; 87088; 99213; G0463

== ENCOUNTER 2025-11-05 15:40 | Emergency (ER) | payer OTHER, SELFPAY ==
[2025-11-05 15:45] VITALS: BP 138/97; PULSE 81; RESP 16; TEMP 37; O2SAT 99
--- NOTE | 2025-11-05 15:52 | ED.URI ---
HPI - URI/Sore Throat General Chief Complaint: Upper Respiratory Infection Stated Complaint: Cold Symptoms Time Seen by Provider: 11/05/25 15:40 Source: patient Mode of arrival: ambulatory Limitations: no limitations History of Present Illness HPI Narrative: patient is a 40-year-old female that presents with a productive cough, the chest burning with cough,ear fullness, congestion. denies any fever, chills, nausea, vomiting, diarrhea. Son had similar illness. Patient was seen by primary 1 week ago and started on steroids 5 days ago. Patient states there was no improvement. Related Data Home Medications ?Medication ?Instructions ?Recorded ?Confirmed ?Last Taken ?Type duloxetine 30 mg capsule,delayed 30 mg PO DAILY 07/03/21 11/05/25 Unknown History release (Cymbalta) gabapentin 300 mg capsule 300 mg PO DAILY 07/03/21 03/21/24 Unknown History metoprolol tartrate 50 mg tablet 50 mg PO DAILY 03/21/24 11/05/25 Unknown History Allergies Allergy/AdvReac Type Severity Reaction Status Date / Time No Known Allergies Allergy Verified 11/05/25 15:43 Review of Systems Review of Systems: All systems reviewed & are unremarkable except as noted in HPI and below Constitutional: Constitutional: Denies chills, Denies fatigue, Denies fever(s), Denies headache(s), Denies malaise and Denies weakness Eyes: Eyes: Denies blurry vision, Denies itchy eyes and Denies loss of vision ENT: Reports otalgia, Denies headache(s), Reports nasal congestion, Denies sinus pain, Reports sinus pressure and Denies sore throat Cardiovascular: Cardiovascular: Denies chest pain, Denies irregular heart rhythm and Denies dyspnea Respiratory: Respiratory: Reports cough, Reports pain with cough and Denies dyspnea Gastrointestinal: Gastrointestinal: Denies abdominal pain, Denies diarrhea, Denies nausea and Denies vomiting Musculoskeletal: Musculoskeletal: Denies back pain, Denies myalgias and Denies arthralgias Integumentary/Breasts: Skin/Breast: Denies pruritus and Denies rash Neurologic: Denies headache(s), Denies loss of vision and Denies weakness Psychiatric: Psychiatric: Reports no additional psychiatric complaints Endocrine: Endocrine: Denies fatigue Allergic/Immunologic: Allergic/Immunologic: Denies itchy eyes PMFSH Past Medical History Medical History History of kidney stones Surgical History Surgical History History of section History of lithotripsy Social History Social History Smoking status: Current every day smoker Alcohol intake: never Substance use: never Substance use type: does not use Gender identity (if verbalized by the patient): Female Comments At time of signature, agree with nursing past medical, surgical, social and family history. There is no relevant family history pertinent to the presenting complaint. Exam Const: General: cooperative, healthy appearing, comfortable, no acute distress and well nourished Nutritional Appearance: well nourished Orientation/consciousness: patient oriented x3 Limitations: no limitations HENMT: Head: normal to inspection, normocephalic and atraumatic Ears: hearing grossly normal bilaterally, external ears normal, TM's normal bilaterally, EAC's normal and no periauricular adenopathy Face/Nose/Sinus: Normal external nose present, Abnormal mucous membranes and turbinates present erythematous bilateral and diffuse, normal facial exam, sinuses nontender and face symmetric Face and sinus: normal facial exam, sinuses nontender and face symmetric Mouth: Yes Normal oral and palatal mucosa present, Yes lip normal, Yes tongue normal, Yes Normal salivary glands and ducts present, Yes oropharynx normal and Yes moist mucous membranes Teeth and gingiva: dentition normal Throat: posterior oropharynx normal, tonsils normal and uvula midline Eyes: General: appearance normal, both eyes and all related structures Alignment and Position: alignment normal and position normal Periorbital: periorbital findings normal Eyelids: eyelids normal Pupils: Equal, round and reactive pupils present Neck: Neck: normal visual inspection, full ROM, no lymphadenopathy and supple Chest: Chest palpation & inspection: normal inspection of the chest and normal palpation of entire chest wall Resp: Effort & Inspection: normal respiratory effort, able to speak in complete sentences and Actively coughing productive Auscultation: clear to auscultation bilaterally, no crackles, no rales, no rhonchi and no wheezes Cardio: Rate: regular rate Rhythm: regular rhythm Heart sounds: S1 normal heart sound present and S2 normal heart sound present GI: Inspection: normal to inspection Skin: General skin exam: normal color and no rashes or lesions noted Neuro: General: patient oriented x3 and moves all extremities Cranial nerves: Yes Equal, round and reactive pupils present Speech: normal speech Gait exam (Neuro): Normal gait present Extrem: General: normal to inspection, full ROM and no edema Psych: Appearance: grossly normal and well kempt Mental Status: mental status grossly normal Speech and movement: Normal speech and movement present Affect: normal affect Attitude: cooperative Thought process: Normal thought process present Course Course Emergency Course: Patient is aware of diagnosis, understands and agrees to treatment plan. Anticipatory guidance given. Patient agrees to follow-up as directed and is aware of reasons to seek care at the emergency department. Portions of this record may have been created with voice recognition software Level of Care: Express Care Visit Vital Signs Vital signs: Vital Signs Temperature 37.0 C 11/05/25 15:45 Pulse Rate 81 11/05/25 15:45 Respiratory Rate 16 11/05/25 15:45 Blood Pressure 138/97 H 11/05/25 15:45 Pulse Oximetry 99 11/05/25 15:45 Temperature 37.0 C 11/05/25 15:45 Pulse Rate 81 11/05/25 15:45 Respiratory Rate 16 11/05/25 15:45 Blood Pressure 138/97 H 11/05/25 15:45 Pulse Oximetry 99 11/05/25 15:45 [facility] MDM Narrative Medical decision making narrative: Based on length of symptoms here are still low in exam patient will be treated with antibiotics Pt well hydrated appearing, in no respiratory distress, hemodynamically stable. Recommend supportive care. The patient is stable at time of discharge the clinical impression was discussed and the patient was given the opportunity to ask questions, which were addressed as completely as possible given the information available at present. Anticipatory guidance and return to care precautions were discussed and the importance of primary care follow-up was stressed and encouraged. The patient voiced understanding of the plan, indications to return, and the need for follow-up. Exam findings show no acute concerns or changes Patient is appropriate for outpatient treatment and follow-up. Differential Diagnosis Differential Diagnosis: Differential diagnosis considered: Krueger virus, strep pharyngitis, allergic rhinitis, upper respiratory tract infection, sinusitis, rhinosinusitis, nasopharyngitis. viral pharyngitis, otitis media, otitis externa, otitis effusion, foreign body, cerumen impaction, viral syndrome, and influenza. Medical Records I have reviewed the following patient records and this information was taken into consideration when formulating the assessment and plan.: previous clinic visits Discharge Plan Discharge Clinical Impression: Acute purulent bronchitis Patient Disposition: Home Condition: Stable Instructions: Acute Bronchitis (ED) Additional Instructions: Take antibiotic as prescribed. Use Tessalon Perles as needed for cough. Use inhaler with spacer as needed. Other symptomatic treatments include: -Alternate Tylenol and Motrin per package directions for fever or pain: Tylenol 650-1000mg by mouth every 4-6 hours. Do not exceed 4000mg in 24 hours. Advil (Ibuprofen) 600 mg by mouth every 6 hours. Do not exceed 2400mg in 24 hours. 8 AM: Tylenol 11 AM: Ibuprofen 2 PM: Tylenol 5 PM: Ibuprofen 8 PM: Tylenol 11 PM: Ibuprofen 2 AM: Tylenol 5 AM: Ibuprofen -Antihistamine medication such as Benadryl at night and Zyrtec/Claritin/Karen during the day can help improve symptoms. -Use Flonase twice a day for 5 days then daily to help reduce the inflammation and dry up your sinuses. -You can also use Sudafed or Mucinex. Be sure to drink plenty of water with these medications at least 8 ounces with every dose and it is important to drink 8 to 10 glasses of water per day. Water is a natural decongestant -Eat and drink things that are easy to swallow, like tea or soup, or popsicles. -Oral rinses such as: Salt water gargles and/or may use topical anesthetic (eg. Chloraseptic spray) or lozenges to relieve dryness or throat pain). -Frequent hand washing or hand sub acute care nurse is one of the best ways to prevent spread of infection. -Using a vaporizer or humidifier at night will also help thin secretions and help with coughing up phlegm. Call your Primary Care Doctor and make a follow-up appointment in 3 days. If your cough worsens, you develop a fever greater than 103, you develop shaking chills, a fast heartbeat, trouble breathing and/or feel you are are breathing much faster than usual, call your Primary Care Doctor or go to the ER. Patient Language: B[place] Prescriptions: New (DME) Aerochamber MV Spacer See Rx Instructions .Route Qty: 1 0RF Rx Instructions: As directed doxycycline monohydrate 100 mg tablet 100 mg PO BID 5 Days Qty: 10 0RF benzonatate 100 mg capsule 100 mg PO BID PRN (Reason: cough) Qty: 14 0RF albuterol sulfate 90 mcg/actuation HFA aerosol inhaler 2 puff inhalation QID PRN (Reason: shortness of breath or wheezing) Qty: 6.7 0RF No Action metoprolol tartrate 50 mg tablet 50 mg PO DAILY duloxetine [Cymbalta] 30 mg capsule,delayed release(DR/EC) 30 mg PO DAILY gabapentin 300 mg capsule 300 mg PO DAILY diclofenac potassium 50 mg tablet 50 mg PO TID PRN (Reason: pain) Qty: 21 0RF Follow-up/Referrals: Chanel,Colton Kiran MD [Primary Care Provider, Unknown] - 3 Days Time of Disposition: 16:30
== END 2025-11-05 16:35 | disposition home or self-care (01) ==
PROVIDERS: Emergency Provider Nurse Practitioner Family; PCP Family Medicine
DX: J20.9 Acute bronchitis, unspecified (principal); F17.200 Nicotine dependence, unspecified, uncomplicated
CPT/HCPCS: 99213; G0463